=== PATIENT | female | born 1985 | race Two or more races ===

== ENCOUNTER 2022-07-16 03:08 | Emergency (ER) | payer SELFPAY ==
[2022-07-16] MEDS ORDERED: CEFTRIAXONE 1000 MG/VIAL ONE (03:45)
[2022-07-16] MEDS ORDERED: ONDANSETRON 4 MG/2 ML VIAL ONE (03:45)
[2022-07-16] MEDS ORDERED: NA CHLORIDE 0.9% 3,000 ML ONE (03:45)
[2022-07-16] MEDS ORDERED: FENTANYL CITR 100 MCG/2 ML ONE (03:45)
[2022-07-16] MEDS ORDERED: IBUPROFEN 400 MG TAB ONE (03:45)
[2022-07-16] MEDS ORDERED: PANTOPRAZOLE 40 MG INJ ONE (04:12)
[2022-07-16] MEDS ORDERED: CEFTRIAXONE 2000 MG/VIAL ONE (04:43)
[2022-07-16 04:50] LABS: Hematocrit 37.2 % (36.0-45.0); MCV 90.1 fL (80-100); MPV 8.1 fL (7.6-11.3); Protime INR 1.05; RBC Red Blood Cell Count 4.12 M/uL (3.86-4.86)
[2022-07-16 05:05] LABS: Specific Gravity 1.012 (1.005-1.030)
[2022-07-16 05:05] LABS: SARS-CoV-2 Antigen Rapid Res Negative (Negative)
[2022-07-16 05:06] LABS: Specific Gravity 1.012 (1.005-1.030); Urine Bacteria 20-50 /HPF (<20); Urine Bilirubin NEGATIVE (Negative); Urine Blood Trace (Negative); Urine Clarity Turbid (Clear); Urine Color Light-Yellow (Yellow); Urine Glucose NEGATIVE (Negative); Urine Mucus 1+ /HPF (None Seen); Urine Protein NEGATIVE (Negative); Urine RBC <5 /HPF (None Seen); Urine Urobilinogen 1+ (Normal); Urine pH 5.5 (5.0-7.0)
[2022-07-16 05:16] LABS: Albumin 3.4 g/dL (3.4-5.0); Bilirubin Direct 0.1 mg/dL (0-0.2); Bilirubin Total 0.3 mg/dL (0.2-1.0); Magnesium 1.9 mg/dL (1.6-2.4); Potassium 3.5 mEq/L (3.5-5.1); Protein, Total 7.5 g/dL (6.4-8.2); Troponin High Sensitivity 3.6 pg/mL (<58.9)
[2022-07-16] MEDS ORDERED: levoFLOXacin 750 MG TAB ONE (05:54)
[2022-07-16] MEDS ORDERED: Levofloxacin 750mg IV 750 MG/150 ML BAG IV ONE (05:56)
--- NOTE | 2022-07-16 06:39 | EDPHYS ---
Physician Documentation [facility] Name: Marquis Brower Age: 36 yrs Sex: Female : 1985 Arrival Date: 07/16/2022 Time: 03:08 Bed 5 Private MD: ED Physician Carlito Garcia HPI: 07/16 03:32 This 36 yrs old [place] Female presents to ER via Ambulatory with complaints of Fever, danyell Headache, Nausea. 03:32 The patient reports fever, that was measured at 102.8 degrees Fahrenheit. Onset: The danyell symptoms/episode began/occurred 5 day(s) ago. Modifying factors: there are no obvious modifying factors. Associated signs and symptoms: Pertinent positives: chills, cough. Severity of symptoms: At their worst the symptoms were moderate in the emergency department the symptoms are unchanged. The patient has not experienced similar symptoms in the past. Historical: - Allergies: 03:28 Amoxicillin; pf1 - Home Meds: 03:28 None [Active]; pf1 - PMHx: 03:28 None; pf1 - PSHx: 03:28 left ankle surgery; pf1 - Immunization history:: Adult Immunizations up to date, Last tetanus immunization: < 5 years ago Flu vaccine is up to date. - Social history:: Smoking status: Reported history of juuling and/or vaping. Patient/guardian denies using alcohol, the patient reports quitting approximately [address] drugs, the patient reports quitting approximately 2.5 years ago. ROS: 03:33 Eyes: Negative for injury, pain, redness, and discharge, ENT: Negative for injury, danyell pain, and discharge, Neck: Negative for injury, pain, and swelling, Abdomen/GI: Negative for abdominal pain, nausea, vomiting, diarrhea, and constipation, Back: Negative for injury and pain, : Negative for injury, bleeding, discharge, and swelling, MS/Extremity: Negative for injury and deformity, Skin: Negative for injury, rash, and discoloration, Psych: Negative for depression, anxiety, suicide ideation, homicidal ideation, and hallucinations, Allergy/Immunology: Negative for hives, rash, and allergies, Endocrine: Negative for neck swelling, polydipsia, polyuria, polyphagia, and marked weight changes, Hematologic/Lymphatic: Negative for swollen nodes, abnormal bleeding, and unusual bruising. 03:33 Cardiovascular: Positive for palpitations. 03:33 Respiratory: Positive for cough, "sounds productive". 03:33 Neuro: Positive for headache. Exam: 03:33 Head/Face: Normocephalic, atraumatic. Eyes: Pupils equal round and reactive to light, danyell extra-ocular motions intact. Lids and lashes normal. Conjunctiva and sclera are non-icteric and not injected. Cornea within normal limits. Periorbital areas with no swelling, redness, or edema. ENT: Nares patent. No nasal discharge, no septal abnormalities noted. Tympanic membranes are normal and external auditory canals are clear. Oropharynx with no redness, swelling, or masses, exudates, or evidence of obstruction, uvula midline. Mucous membranes moist. Neck: Trachea midline, no thyromegaly or masses palpated, and no cervical lymphadenopathy. Supple, full range of motion without nuchal rigidity, or vertebral point tenderness. No Meningismus. Chest/axilla: Normal chest wall appearance and motion. Nontender with no deformity. No lesions are appreciated. Respiratory: Lungs have equal breath sounds bilaterally, clear to auscultation and percussion. No rales, rhonchi or wheezes noted. No increased work of breathing, no retractions or nasal flaring. Abdomen/GI: Soft, non-tender, with normal bowel sounds. No distension or tympany. No guarding or rebound. No evidence of tenderness throughout. Back: No spinal tenderness. No costovertebral tenderness. Full range of motion. Pelvic Exam: Normal external genitalia. Speculum exam with closed cervical os, no discharge or bleeding noted. Bimanual exam with normal adnexa, no adnexal or cervical motion tenderness. Normal uterus. Skin: Warm, dry with normal turgor. Normal color with no rashes, no lesions, and no evidence of cellulitis. MS/ Extremity: Pulses equal, no cyanosis. Neurovascular intact. Full, normal range of motion. Psych: Awake, alert, with orientation to person, place and time. Behavior, mood, and affect are within normal limits. 03:33 Cardiovascular: Rate: tachycardic, Rhythm: regular, Pulses: Pulses are 4+ in bilateral radial, brachial, femoral, popliteal, posterior tibial and and dorsalis pedis arteries.. Heart sounds: normal, normal S1and S2, no S3 or S4, no murmur, no rub, no gallop, Edema: is not appreciated, JVD: is not appreciated. 03:33 Neuro: Orientation: is normal, appropriate for stated age, no acute changes, Mentation: is normal, appropriate for stated age, no acute changes, Memory: is normal, appropriate for stated age, no acute changes, Cranial nerves: grossly normal, is grossly normal based on the patient's age, no acute changes, Cerebellar function: is grossly normal, Motor: moves all fours, Gait: not tested. Deep tendon reflexes are 2+ (normal) in the bilateral brachioradialis, bicep, tricep and patellar and Achilles tendons, Babinski testing is normal. 05:28 ECG was reviewed by the Attending Physician. danyell Vital Signs: 03:26 BP 131 / 82; Pulse 118; Resp 20; Temp 102.8; Pulse Ox 98% on R/A; Weight 86.18 kg; pf1 Height 5 ft. 5 in. ; Pain 10/10; 04:20 BP 106 / 64; Pulse 101; Resp 16; Pulse Ox 100% on R/A; pf1 05:15 BP 117 / 61; Pulse 101; Resp 18 S; Pulse Ox 98% on R/A; as7 05:30 Temp 99.3(O); pf1 06:32 BP 104 / 56; Pulse 88; Resp 14; Temp 98.1; Pulse Ox 99% on R/A; Pain 0/10; pf1 06:34 Temp 98.1(O); as7 07:41 BP 100 / 55; Pulse 81; Resp 20; Pulse Ox 99% ; bp 03:26 Body Mass Index 31.62 (86.18 kg, 165.1 cm) pf1 03:26 Pain Scale: Adult pf1 06:32 Pain Scale: Adult pf1 Carin Coma Score: 03:38 Eye Response: spontaneous(4). Motor Response: obeys commands(6). Verbal Response: danyell oriented(5). Total: 15. Procedures: 05:12 Peripheral line: by aseptic technique a peripheral line was placed in the left 18g 10cm la1 Midline LUE via dynamic ultrasound, visualized in vessel, + blood return, Flushes easily.. MDM: 03:11 Patient medically screened. danyell 03:38 Antibiotic administration: Rocephin and Zithromax given. Differential diagnosis: [facility] bronchitis, flu, URI, cerebral vascular accident, viral Infection, bacterial infection, URI, bronchitis, pneumonia UTI, meningitis. Data reviewed: vital signs, nurses notes, lab test result(s), EKG, radiologic studies, CT scan, plain films. 07/16 03:30 Order name: Basic Metabolic Panel; Complete Time: 05:30 [facility] 07/16 03:30 Order name: CBC with Diff; Complete Time: 05:30 [facility] 07/16 03:30 Order name: LFT's; Complete Time: 05:30 [facility] 07/16 03:30 Order name: Magnesium; Complete Time: 05:30 [facility] 07/16 03:30 Order name: PT-INR; Complete Time: 05:30 [facility] 07/16 03:30 Order name: Troponin HS; Complete Time: 05:30 [facility] 07/16 03:30 Order name: Lipase; Complete Time: 05:30 [facility] 07/16 03:30 Order name: Blood Culture Adult (2) [facility] 07/16 03:30 Order name: Lactate w/ 2H reflex if indic.; Complete Time: 05:30 [facility] 07/16 03:30 Order name: Flu; Complete Time: 05:30 [facility] 07/16 03:30 Order name: Strep [facility] 07/16 03:30 Order name: SARS RAPID; Complete Time: 05:30 [facility] 07/16 03:31 Order name: Urinalysis w/ reflexes; Complete Time: 05:30 [facility] 07/16 03:31 Order name: PREGU; Complete Time: 05:30 [facility] 07/16 04:51 Order name: Throat Culture [facility] 07/16 03:30 Order name: Chest Pa And Lat (2 Views) XRAY 07/16 03:30 Order name: CT Head Brain wo Cont [facility] 07/16 05:35 Order name: CT Abd/Pelvis - IV Contrast Only 07/16 03:30 Order name: EKG; Complete Time: 03:31 [facility] 07/16 03:30 Order name: Cardiac monitoring; Complete Time: 07:18 [facility] 07/16 03:30 Order name: EKG - Nurse/Tech; Complete Time: 04:32 [facility] 07/16 03:30 Order name: IV Saline Lock; Complete Time: 07:18 [facility] 07/16 03:30 Order name: Labs collected and sent; Complete Time: 04:32 [facility] 07/16 03:30 Order name: O2 Per Protocol; Complete Time: 03:51 danyell 07/16 03:30 Order name: O2 Sat Monitoring; Complete Time: : [facility] EC: Rate is 101 beats/min. Rhythm is regular. QRS [place] is Normal. ME interval is normal. danyell QRS interval is normal. QT interval is normal. No Q waves. No ST changes noted. Clinical impression: NSR w/ Non-specific ST/T Changes and No evidence of ischemia. Interpreted by me. Reviewed by me. 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 NEGATIVE STRIPPER): Acetaminophen PO 1000 mg PO once pf1 04:00 Drug: Rocephin IV 2 grams {Note: patient stated is not allergic to rocephin .} Route: pf1 IV; Rate: per protocol; Site: left upper arm; 04:15 Follow up: Response: No adverse reaction; Marked relief of symptoms; IV Status: pf1 Completed infusion; IV Intake: 10ml 04:00 Drug: Pantoprazole IVP 40 mg Route: IVP; Site: left upper arm; pf1 05:00 Follow up: Response: No adverse reaction; Marked relief of symptoms pf1 04:10 Not Given (changed to protonixx): Famotidine IVP 20 mg IVP once; dilute with 10 mL 0.9% pf1 NaCl; give over 2 minutes 04:10 Not Given (Patient Refused): fentaNYL (PF) IVP 50 mcg IVP once pf1 04:15 Drug: Ibuprofen PO 800 mg Route: PO; pf1 05:00 Follow up: Response: No adverse reaction; Marked relief of symptoms; Temperature is pf1 decreased 05:15 Drug: NS 0.9% IV 1000 ml Route: IV; Rate: 1 bolus; Site: left upper arm; pf1 05:45 Follow up: Response: No adverse reaction; Marked relief of symptoms pf1 06:00 Follow up: Response: No adverse reaction; Marked relief of symptoms; IV Status: pf1 Completed infusion; IV Intake: 1000ml 05:15 Drug: Ondansetron IVP 4 mg Route: IVP; Site: left upper arm; pf1 05:43 Follow up: Response: No adverse reaction; Marked relief of symptoms pf1 05:45 Drug: NS 0.9% IV 1000 ml Route: IV; Rate: 1 bolus; Site: left upper arm; pf1 06:36 Follow up: Response: No adverse reaction; Marked relief of symptoms pf1 06:05 Drug: LevaQUIN IVPB 750 mg Route: IVPB; Site: left upper arm; pf1 06:36 Follow up: Response: No adverse reaction; Marked relief of symptoms pf1 06:36 Drug: NS 0.9% IV 1000 ml Route: IV; Rate: 1 bolus; Site: left upper arm; pf1 06:42 Follow up: Response: No adverse reaction; Marked relief of symptoms pf1 07:17 Drug: Flomax PO 0.4 mg Route: PO; bp Disposition: 05:30 I reviewed the patient's care provided by the Advanced Practice Provider and agree [facility] the diagnosis and treatment plan. Disposition Summary: 07/16/22 06:38 Discharge Ordered Location: Home danyell Problem: new danyell Symptoms: have improved danyell Condition: Stable danyell Diagnosis - Fever, unspecified danyell - Headache danyell - UTI/ Urinary tract infection, site not specified danyell - Nausea danyell - Pyelonephritis acute danyell Followup: danyell - With: Private Physician - When: 2 - 3 days - Reason: Recheck today's complaints, Re-evaluation by your physician Discharge Instructions: - Discharge Summary Sheet danyell - Fever, Adult danyell - Nausea and Vomiting, Adult danyell - Nausea, Adult danyell - Pyelonephritis, Adult danyell - Pyelonephritis, Adult, [id number] danyell - Urinary Tract Infection, Adult danyell Forms: - Medication Reconciliation Form danyell - Thank You Letter daynell - Antibiotic Education danyell - Prescription Opioid Use danyell - Work release form bp - Family Work Release bp Prescriptions: - Flomax 0.4 mg Oral capsule - take 1 capsule by ORAL route every day at bedtime; 21 capsule; Refills: 0, danyell Product Selection Permitted - Zofran 4 mg Oral Tablet - take 1 tablet by ORAL route every 6-8 hours As needed; 24 tablet; Refills: 0, danyell Product Selection Permitted - levofloxacin 750 mg Oral Tablet - take 1 tablet by ORAL route once daily; 9 tablet; Refills: 0, Product Selection danyell Permitted Signatures: Dispatcher [employer] Carlito Rebolledo MD MD cha Attema, Lee, [employer] Danilo Vela RN RN bp Chey flores RN RN pf1 Corrections: (The following items were deleted from the chart) 03:51 03:30 Acetaminophen PO 1000 mg PO once ordered. danyell pf1
--- NOTE | 2022-07-16 06:39 | ER ---
Nurse's Notes [facility] Name: Marquis Brower Age: 36 yrs Sex: Female : 1985 Arrival Date: 07/16/2022 Time: 03:08 Bed 5 Private MD: Diagnosis: Fever, unspecified;Headache;UTI/ Urinary tract infection, site not specified;Nausea;Pyelonephritis acute Presentation: 07/16 03:26 Chief complaint: Patient states: generalized headache, nausea with fever and pf1 chills,onset Tuesday. Patient stated last took Tylenol 1000mg at 30 minutes ago and Clotilde 2 hours ago. Coronavirus screen: Vaccine status: Patient reports receiving the 2nd dose of the covid vaccine. 3 doses of pfizer Client denies travel out of the [place] in the last 14 days. Client presents with at least one sign or symptom that may indicate coronavirus-19. Standard/surgical mask placed on the client. Ebola Screen: Patient negative for fever greater than or equal to 101.5 degrees Fahrenheit, and additional compatible Ebola Virus Disease symptoms. Initial Sepsis Screen: Does the patient meet any 2 criteria? Temp <36.0*C (96.8*F)) or > 38.3*C (100.9*F). HR > 90 bpm. Yes Does the patient have a suspected source of infection? No. Patient's initial sepsis screen is negative. Risk Assessment: Do you want to hurt yourself or someone else? Patient reports no desire to harm self or others. Onset of symptoms was July 11, 2022. 03:26 Method Of Arrival: Ambulatory pf1 03:26 Acuity: DIMITRIOS 3 pf1 Historical: - Allergies: 03:28 Amoxicillin; pf1 - Home Meds: 03:28 None [Active]; pf1 - PMHx: 03:28 None; pf1 - PSHx: 03:28 left ankle surgery; pf1 - Immunization history:: Adult Immunizations up to date, Last tetanus immunization: < 5 years ago Flu vaccine is up to date. - Social history:: Smoking status: Reported history of juuling and/or vaping. Patient/guardian denies using alcohol, the patient reports quitting approximately [address], [address] drugs, the patient reports quitting approximately 2.5 years ago. Screenin:34 [facility] ED Fall Risk Assessment (Adult) History of falling in the last 3 months, pf1 including since admission No falls in past 3 months (0 pts) Confusion or Disorientation No (0 pts) Intoxicated or Sedated No (0 pts) Impaired Gait No (0 pts) Mobility Assist Device Used No (0 pt) Altered Elimination No (0 pt) Score/Fall Risk Level 0 - 2 = Low Risk Oriented to surroundings, Maintained a safe environment, Educated pt \T\ family on fall prevention, incl call for assistance when getting out of bed, Assessed \T\ reinforced patient's understanding of fall precautions, Provided non-skid footwear, Hourly rounding (assess needs \T\ fall precautionary measures) done, Used ambulatory aids as needed (educated on \T\ assisted with), Used gait belt as appropriate. Abuse screen: Denies threats or abuse. Nutritional screening: No deficits noted. Tuberculosis screening: No symptoms or risk factors identified. Assessment: 03:32 General: Appears in no apparent distress. uncomfortable, well groomed, well developed, pf1 Behavior is cooperative, appropriate for age, crying. Pain: Complains of pain in head Pain currently is 10 out of 10 on a pain scale. Neuro: Level of Consciousness is awake, alert, obeys commands, Oriented to person, place, time, situation, Reports headache in entire. Cardiovascular: Capillary refill < 3 seconds Patient's skin is warm and dry. Respiratory: Reports cough that is non-productive, Airway is patent Respiratory effort is even, unlabored, Respiratory pattern is regular, symmetrical. GI: Abdomen is round non-distended, Bowel sounds present X 4 quads. Reports nausea. : No deficits noted. No signs and/or symptoms were reported regarding the genitourinary system. EENT: No deficits noted. No signs and/or symptoms were reported regarding the EENT system. Derm: No deficits noted. No signs and/or symptoms reported regarding the dermatologic system. Musculoskeletal: No deficits noted. No signs and/or symptoms reported regarding the musculoskeletal system. Circulation, motion, and sensation intact. Capillary refill < 3 seconds, Range of motion: intact in all extremities. 04:30 Reassessment: Patient appears in no apparent distress at this time. No changes from pf1 previously documented assessment. Patient and/or family updated on plan of care and expected duration. Pain level reassessed. Patient states feeling better. Patient states symptoms have improved. 05:30 Reassessment: Patient appears in no apparent distress at this time. No changes from pf1 previously documented assessment. Patient and/or family updated on plan of care and expected duration. Pain level reassessed. Patient states feeling better. Patient states symptoms have improved. 06:32 Reassessment: Patient appears in no apparent distress at this time. No changes from pf1 previously documented assessment. Patient and/or family updated on plan of care and expected duration. Pain level reassessed. Patient states feeling better. Patient states symptoms have improved. 07:00 Reassessment: RECD REPORT FROM [facility]. 36YO AF P/W FEVER, HAMMOND AND NAUSEA. TBDC AFTER ABX bp AND IVF. 07:41 Reassessment: PT DC HOME AMBULATORY. bp Vital Signs: 03:26 BP 131 / 82; Pulse 118; Resp 20; Temp 102.8; Pulse Ox 98% on R/A; Weight 86.18 kg; pf1 Height 5 ft. 5 in. ; Pain 10/10; 04:20 BP 106 / 64; Pulse 101; Resp 16; Pulse Ox 100% on R/A; pf1 05:15 BP 117 / 61; Pulse 101; Resp 18 S; Pulse Ox 98% on R/A; as7 05:30 Temp 99.3(O); pf1 06:32 BP 104 / 56; Pulse 88; Resp 14; Temp 98.1; Pulse Ox 99% on R/A; Pain 0/10; pf1 06:34 Temp 98.1(O); as7 07:41 BP 100 / 55; Pulse 81; Resp 20; Pulse Ox 99% ; bp 03:26 Body Mass Index 31.62 (86.18 kg, 165.1 cm) pf1 03:26 Pain Scale: Adult pf1 06:32 Pain Scale: Adult pf1 Carin Coma Score: 03:38 Eye Response: spontaneous(4). Motor Response: obeys commands(6). Verbal Response: danyell oriented(5). Total: 15. ED Course: 03:09 Patient arrived in ED. ja2 03:11 Carlito Garcia MD is Attending Physician. danyell 03:26 Chey flores, JEOVANY is Primary Nurse. pf1 03:28 Triage completed. pf1 03:34 Patient has correct armband on for positive identification. Bed in low position. Call pf1 light in reach. 03:48 Chest Pa And Lat (2 Views) XRAY In Process Unspecified. EDMS 03:55 CT Head Brain wo Cont In Process Unspecified. EDMS 04:09 Flu Sent. pf1 04:09 Strep Sent. pf1 04:10 SARS RAPID Sent. pf1 04:10 PREGU Sent. pf1 04:10 Urinalysis w/ reflexes Sent. pf1 04:31 SARS RAPID Sent. as7 04:31 Strep Sent. as7 04:32 Flu Sent. as7 04:32 Basic Metabolic Panel Sent. as7 04:32 CBC with Diff Sent. as7 04:32 LFT's Sent. as7 04:32 Magnesium Sent. as7 04:32 PT-INR Sent. as7 04:32 Troponin HS Sent. as7 04:32 Lactate w/ 2H reflex if indic. Sent. as7 04:32 Lipase Sent. as7 06:10 CT Abd/Pelvis - IV Contrast Only In Process Unspecified. EDMS 07:19 Primary Nurse role handed off by Chey flores, RN bp 07:19 Danilo Vela, RN is Primary Nurse. bp 07:42 No provider procedures requiring assistance completed. IV discontinued, intact, bp bleeding controlled, No redness/swelling at site. Pressure dressing applied. 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 BODY AND FRAME TECHNICIAN): Acetaminophen PO 1000 mg PO once pf1 04:00 Drug: Rocephin IV 2 grams {Note: patient stated is not allergic to rocephin .} Route: pf1 IV; Rate: per protocol; Site: left upper arm; 04:15 Follow up: Response: No adverse reaction; Marked relief of symptoms; IV Status: pf1 Completed infusion; IV Intake: 10ml 04:00 Drug: Pantoprazole IVP 40 mg Route: IVP; Site: left upper arm; pf1 05:00 Follow up: Response: No adverse reaction; Marked relief of symptoms pf1 04:10 Not Given (changed to protonixx): Famotidine IVP 20 mg IVP once; dilute with 10 mL 0.9% pf1 NaCl; give over 2 minutes 04:10 Not Given (Patient Refused): fentaNYL (PF) IVP 50 mcg IVP once pf1 04:15 Drug: Ibuprofen PO 800 mg Route: PO; pf1 05:00 Follow up: Response: No adverse reaction; Marked relief of symptoms; Temperature is pf1 decreased 05:15 Drug: NS 0.9% IV 1000 ml Route: IV; Rate: 1 bolus; Site: left upper arm; pf1 05:45 Follow up: Response: No adverse reaction; Marked relief of symptoms pf1 06:00 Follow up: Response: No adverse reaction; Marked relief of symptoms; IV Status: pf1 Completed infusion; IV Intake: 1000ml 05:15 Drug: Ondansetron IVP 4 mg Route: IVP; Site: left upper arm; pf1 05:43 Follow up: Response: No adverse reaction; Marked relief of symptoms pf1 05:45 Drug: NS 0.9% IV 1000 ml Route: IV; Rate: 1 bolus; Site: left upper arm; pf1 06:36 Follow up: Response: No adverse reaction; Marked relief of symptoms pf1 06:05 Drug: LevaQUIN IVPB 750 mg Route: IVPB; Site: left upper arm; pf1 06:36 Follow up: Response: No adverse reaction; Marked relief of symptoms pf1 06:36 Drug: NS 0.9% IV 1000 ml Route: IV; Rate: 1 bolus; Site: left upper arm; pf1 06:42 Follow up: Response: No adverse reaction; Marked relief of symptoms pf1 07:17 Drug: Flomax PO 0.4 mg Route: PO; bp Intake: 04:15 IV: 10ml; Total: 10ml. pf1 06:00 IV: 1000ml; Total: 1010ml. pf1 Outcome: 06:38 Discharge ordered by . danyell 07:42 Discharged to home ambulatory, with family. bp 07:42 Condition: stable 07:42 Discharge instructions given to patient, Instructed on discharge instructions, follow up and referral plans. medication usage, Demonstrated understanding of instructions, follow-up care, medications, Prescriptions given X 2. 07:42 Patient left the ED. bp Signatures: Dispatcher [employer] EDCarlito Calderon MD MD cha Peltier, Brian, RN RN Brenda John Pamala, RN RN pf1 Neyda Sylvester as7 Corrections: (The following items were deleted from the chart) 06:43 03:32 Respiratory: Airway is patent Respiratory effort is even, unlabored, Respiratory pf1 pattern is regular, symmetrical, pf1
[2022-07-16] MEDS ORDERED: TAMSULOSIN 0.4 MG SR CAP ONE (07:17)
[2022-07-16 07:59] VITALS: TEMP 98.1; O2SAT 99
[2022-07-16 08:01] VITALS: BP 100/55
--- NOTE | 2022-07-17 14:05 | RAD REPORT ---
EXAM DESCRIPTION: CT - Abdomen Pelvis W Contrast - 07/16/2022 6:44 am CLINICAL HISTORY: 36 years Female Fever; Flank pain TECHNIQUE: Non contrast CT of the abdomen and pelvis with coronal and sagittal reformats. All CT sca ns at this facility use dose modulation, iterative reconstruction, and/or weight based dosing when ap propriate to reduce radiation dose to as low as reasonably achievable. COMPARISON: None. FINDINGS: Lower chest: Lung bases are clear. Abdomen/Pelvis: Liver: Unremarkable. Gallbladder: No calcified stone. Pancreas: Within normal limits. Spleen: Within normal limits. Kidney: Mild right perinephric stranding, hydronephrosis and hydroureter with periureteral fat strand ing. No obvious ureteral stone is identified. There are pelvic phleboliths on the right side. Adrenal glands: Within normal limits. Vascular structures: Unremarkable. Bowel: No bowel distention. Appendix: Normal. Peritoneum: No free fluid or free air. Lymph Nodes: Small nonspecific mesenteric and retroperitoneal lymph nodes are present.. Reproductive: IUD in place. Urinary bladder: Decompressed with diffuse wall thickening. Osseous structures: Multilevel degenerative changes, moderate at L5-S1. Soft tissues: Unremarkable. IMPRESSION: Mild right perinephric stranding, hydronephrosis and hydroureter with periureteral fat s tranding but no obvious obstructing ureteral stone. Correlate clinically for pyelonephritis and recen tly passed stone. Electronically signed by: Jaden Sky MD 07/16/2022 6:33 AM CDT Due to temporary technical issues with the PACS/Fluency reporting system, reports are being signed by the in house radiologists without review as a courtesy to insure prompt reporting. The interpreting radiologist is fully responsible for the content of the report.
--- NOTE | 2022-07-17 14:08 | RAD REPORT ---
EXAM DESCRIPTION: Chest Pa And Lat (2 Views) CLINICAL HISTORY: Congestion;Cough TECHNIQUE: PA and lateral chest COMPARISON: None available for comparison FINDINGS: CHEST: Heart: The cardiomediastinal silhouette is within normal limits. Lungs: No focal consolidation. Mediastinum: Unremarkable Pleura: No appreciable effusion. No pneumothorax. Bones: Intact IMPRESSION: No acute cardiopulmonary disease. Electronically signed by: Mesfin Hampton MD 07/16/2022 4:05 AM CDT Due to temporary technical issues with the PACS/Fluency reporting system, reports are being signed by the in house radiologists without review as a courtesy to insure prompt reporting. The interpreting radiologist is fully responsible for the content of the report.
--- NOTE | 2022-07-17 15:22 | EKG ---
Test Date: 2022-07-16 Test Time: 04:19:47 Child Care Provider: MEASUREMENT RESULTS: Intervals: Rate: 106 NV: 134 QRSD: 80 QT: 326 QTc: 433 [place]: P: 39 NV: 134 QRS: 50 T: 42 INTERPRETIVE STATEMENTS: Sinus tachycardia Otherwise normal ECG No previous ECG available for comparison Electronically Signed On 07-17-22 15:21:19 CDT by Niels Javier
--- NOTE | 2022-07-17 15:32 | RAD REPORT ---
EXAM DESCRIPTION: CT - Head Brain Wo Cont - 07/16/2022 6:31 am CLINICAL HISTORY: 36 years Female Fever;Headache COMPARISON: CT head 07/16/2022. TECHNIQUE: Noncontrast CT head. This exam was performed according to our departmental dose-optimization program, which includes autom ated exposure control, adjustment of the mA and/or kV according to patient size and/or use of iterati ve reconstruction technique. FINDINGS: Parenchyma: No acute hemorrhage, large territorial infarction, or mass effect. Ventricles and extra-axial spaces: Appropriate for age. Visualized paranasal sinuses: Clear. Mastoid air cells: Clear. Bones: No acute focal abnormality. Additional comment: None. IMPRESSION: No acute intracranial findings. Electronically signed by: Ritesh Green MD 07/16/2022 4:17 AM CDT Due to temporary technical issues with the PACS/Fluency reporting system, reports are being signed by the in house radiologists without review as a courtesy to insure prompt reporting. The interpreting radiologist is fully responsible for the content of the report.
== END 2022-07-16 07:42 | disposition home or self-care (01) ==
LOC: ER 03:08
DX: N10 Acute pyelonephritis (principal); N39.0 Urinary tract infection, site not specified; R51.9 Headache, unspecified; R11.0 Nausea
CPT/HCPCS: 36415; 70450; 71046; 74177; 80048; 80076; 81001; 81025; 83605; 83690; 83735; 84484; 85025; 85610; 87040; 87070; 87081; 87804; 87811; 93005; 96361; 96374; 96375; 99284; C9113; J0696; J2405; J3010; J7030; Q9967